=== PATIENT | female | born 1955 | race Caucasian/White ===

== ENCOUNTER → 2018-08-22 16:15 | Outpatient (CLI) | payer OTHER, SELFPAY ==
[2018-08-22 17:00] LABS: Add Manual Diff / Slide Review NO; Basophils Absolute Auto 0 /uL (0-100); Basophils Percent Auto 0.7 % (0-2); Eosinophils Absolute Auto 100 /uL (0-450); Eosinophils Percent Auto 2.4 % (2-4); Hematocrit 43.7 % (36-46); Hemoglobin 14.7 g/dL (12.0-16.0); Lymphocytes Absolute Auto 900 /uL (1100-4500); Lymphocytes Percent Auto 25.1 % (25-40); Mean Corpuscular HGB Conc 33.7 % (30-36); Mean Corpuscular Hemoglobin 32.5 PG (26-34); Mean Corpuscular Volume 96.5 fL (80-100); Monocytes Absolute Auto 300 /uL (0-900); Monocytes Percent Auto 7.8 % (3-14); Neutrophils Absolute Auto 2300 /uL (1500-7000); Platelet Count 133 X10^3/uL (150-400); Red Blood Cell Count 4.53 X10^6/uL (4.0-5.2); Red Cell Distribution Width 13.7 % (11.6-14.8); White Blood Cell Count 3.5 X10^3/uL (4.5-11.0)
[2018-08-22 17:24] LABS: RBC Urine None Seen (0-5/HPF)
[2018-08-22 17:34] LABS: Erythrocyte Sedimentation Rate 4 MM/HR (0-20)
[2018-08-22 17:55] LABS: Alanine Aminotransferase 39 IU/L (9-52); Albumin 4.1 g/dL (3.5-5.0); Albumin Globulin Ratio 1.6 (1.0-2.8); Alkaline Phosphatase 73 U/L (38-126); Aspartate Aminotransferase 27 IU/L (14-36); BUN Creatinine Ratio 21.7 (6-22); Bilirubin Total 0.3 mg/dL (0.2-1.3); Blood Urea Nitrogen 26 mg/dL (7-17); Calcium 9.5 mg/dL (8.4-10.2); Carbon Dioxide 32 mmol/L (22-32); Chloride 98 mmol/L (98-107); Estimated Glomerular Filt Rate 45.1 mL/min (>60); Globulin 2.5 g/dL (1.7-4.1); Glucose 78 mg/dL (80-110); HEMOLYSIS < 15 (0-50); Hemoglobin A1C% w Est Avg Glu 5.1 % (4.0-6.0); Potassium 4.1 mmol/L (3.4-5.1); Sodium 139 mmol/L (137-145); Total Protein 6.6 g/dL (6.3-8.2)
[2018-08-22 18:03] LABS: C-Reactive Protein Quant < 0.5 mg/dL (<1.0)
[2018-08-22 18:41] LABS: Bilirubin Urine UA NEGATIVE (NEGATIVE); Color Urine UA YELLOW; Glucose Urine UA NEGATIVE (Negative); Ketones Urine UA NEGATIVE (NEGATIVE); Leukocyte Esterase Urine UA NEGATIVE (NEGATIVE); Nitrite Urine UA POSITIVE (Negative); Occult Blood Urine UA 1+ (Negative); Protein Urine UA NEGATIVE (Negative); Urobilinogen Urine UA 0.2 E.U./dL (0.2); pH Urine UA 5.5 (4.5-8.0)
[2018-08-22 18:42] LABS: Appearance Urine UA Slightly Cloudy
[2018-08-22 18:58] LABS: Bacteria Urine Many (>30); Culture Indicated Urine Specimen Cultured; Squamous Epithelial Cell Urine 0-1 /HPF (0-5/HPF); WBC Urine 1-5/HPF (0-5/HPF)
== END ==
PROVIDERS: Visit Provider Orthopaedic Surgery
DX: Z01.818 Encounter for other preprocedural examination (principal); Z01.812 Encounter for preprocedural laboratory examination; N39.9 Disorder of urinary system, unspecified; Z13.1 Encounter for screening for diabetes mellitus; R73.9 Hyperglycemia, unspecified
CPT/HCPCS: 36415; 80053; 81001; 83036; 85025; 85651; 86140; 87077; 87086; 87186

== ENCOUNTER 2018-12-11 06:03 | Inpatient (IN) | payer OTHER, MEDICARE, SELFPAY ==
[2018-11-27 13:58] VITALS: BMI 20.1
[2018-12-11] VITALS (15 sets, daily range): BP systolic 93–147; BP diastolic 43–80; PULSE 87–106; RESP 10–20; TEMP 35.9–36.7; O2SAT 98–100; BMI 19.1
--- NOTE | 2018-12-11 06:00 | DI.RAD.S_ITS ---
PROCEDURE: XR HIP W PEL IF DONE RT 2V INDICATIONS: post right GARO TECHNIQUE: AP pelvis and lateral view of the right hip acquired. COMPARISON: [facility] [place], [place], XR PELVIS WITH BILATERAL LATERAL HIPS, 08/22/2018, 14:04. FINDINGS: Bones: Patient is status post right hip arthroplasty, with hardware components in expected positions. The hip joint appears congruent. The visualized bony structures appear intact. Soft tissues: Overlying postoperative changes are noted. No suspicious soft tissue densities. IMPRESSION: Post right total hip arthroplasty changes with anatomic right hip alignment. Dictated by: Shay Bowser M.D. on 12/11/2018 at 13:27 Approved by: Shay Bowser M.D. on 12/11/2018 at 13:27
[2018-12-11] MEDS: VANCOMYCIN 1,000 MG/200 ML PIGGYBACK 200 MG IV (07:08)
--- NOTE | 2018-12-11 07:11 | PC.NURSE ---
Day shift: Pt is not on AC unit at this time. [id number]
[2018-12-11] MEDS: ACETAMINOPHEN 325 MG TABLET 975 MG PO ×3 (07:20→20:57)
[2018-12-11] MEDS: CELECOXIB 200 MG CAPSULE PO (07:20)
[2018-12-11] MEDS: PREGABALIN 75 MG CAPSULE PO (07:21)
[2018-12-11] MEDS: LACTATED RINGERS 1,000 ML 42 ML IV ×2 (07:21→09:44)
--- NOTE | 2018-12-11 07:51 | PM.PREOP ---
Pre-operative Note Interval Note History & Physical reviewed/Exam performed by Physician: Yes Changes to H&P: No
--- NOTE | 2018-12-11 07:52 | PM.OP.1 ---
Operative Date/Time/Diagnoses Date of procedure: 12/11/18 Time of procedure: 07:52 Pre-op diagnosis: right hip OA. MS Post-op diagnosis: same Procedure & Clinicians Procedure: right total hip arthroplasty anterior Same procedure as scheduled: Yes Indications: The patient has had progressively worsening right hip pain with radiographic changes consistent with arthritis. Non-operative management has failed and the patient has requested total hip replacement. The risks, benefits and alternatives to surgery were discussed with the patient prior to proceeding. Risks discussed included, but were not limited to, failure to relieve pain, leg length discrepancy, dislocation, stiffness, infection, nerve damage, deep venous thrombosis, pulmonary embolism, stroke, coma, heart attack, permanent paralysis and , as well as the potential need for eventual revision of the prosthetic. Patient has a history of multiple sclerosis. Surgeon: Mandy Worthy Doughnut Machine Operator Helper: lAe Contreras Click Yes if Unassisted: Yes Anesthesia Type: General Operative Notes Findings: Severe right hip osteoarthritis, moderate preoperative hip flexion contracture Closure Type: primary Specimen(s): none sent Prosthetic devices, grafts, tissues, transplants, or devices: Worthy [employer] Nephew R3 54 cup, 54 x 36, 36+ 0 Oxinium, size 5 standard anthology Applied: implant(s) Estimated Blood Loss (mL): 250 Blood products transfused: none Procedure in detail: The patient was brought to the operating room. Patient was carefully positioned in the supine position. Time-out was performed and antibiotics were given. Anesthesia was induced. She was positioned in the on the table in order to allow hyperextension of the hip. The right lower extremities were prepped and draped in a standard sterile fashion. An anterior right hip incision was made 1 fingerbreadth lateral to the anterior superior iliac spine and extended distally towards the greater trochanter. Dissection was carried out through skin and subcutaneous tissues. The skin and subcutaneous tissues were carefully injected with Marcaine with epi. Superficial hemostasis was achieved. The fascia over the tensor fascia fartun was defined and incised with a knife. Two Allis clamps were used to grasp the fascia. Tensor fascia fartun was retracted laterally. A gelpi retractor was placed. Dissection was carried out down along the neck. There was significant scarring among the at between the abductors and the underlying capsule. She did have a preoperative hip flexion contracture. The circumflex vessels were carefully identified and cauterized with the Aqua Mantis. The rectus insertion along the capsule was meticulously mobilized. There was good visualization of the femoral neck. A Cobra was placed superior to the neck and the gluteus fibers were carefully stripped from that superior aspect of the capsule. A 2nd retractor was placed along the inferior aspect of the neck. The rectus insertion along the capsule was partially released. A 3rd retractor that was then gently placed over the rim of the acetabulum under the rectus. Capsule was carefully incised and released from the intertrochanteric line circumferentially superior to the mid sagittal line and inferiorly to the mid sagittal line until the lesser trochanter was palpable. A tag stitch was placed both in the superior and inferior limb of the capsular insertion. Along the acetabulum capsule was also released up to the mid sagittal 12:00 position. A portion of the labrum was resected. A saw was used to perform an osteotomy at the level of the intertrochanteric line and the junction of the superior femoral neck leaving approximately 1 finger breath of residual inferior neck above the lesser trochanter. A 2nd cut was made along the femoral neck at the base of the head and a napkin ring of neck was removed. Corkscrew was placed in the femoral head and the head was removed without difficulty. Retractors were then repositioned around the acetabulum. Residual labrum was resected and additional osteophytes were removed. A reamer that was 4 mm below the templated size was placed by hand in the acetabulum and it was reamed to centralize the acetabulum. It was then reamed up to 2 under the templated size and fluoroscopy was brought in to confirm the position of the reaming and depth of reaming. I reamed 1 under the anticipated size. A trial cup was placed and noted that it was appropriately sized and fluoroscopy confirmed position and depth. The component was open and inserted without difficulty fluoroscopic imaging was used to confirm that the cup had been adequately seated and was well positioned. A single screw was used for further stabilization. Neutral poly liner was placed. The cup was tested and noted to be stable. Attention was then directed to the femur. The femur was gently hyperextended additional capsular release was performed as needed in order to allow adequate visualization of the proximal femur with elevation of the femur. Patient was placed in a hyperextended slightly abducted position with maximum external rotation. Box osteotome was used to check for any residual neck as well as sclerotic bone along the trochanter. Emerado pepper was placed in the femur. Additional broaching was performed. Canal finder was used to determine the alignment of the canal and position. Size 1 broach was placed. The canal was then appropriately broached up to the templated size as long as there was adequate stability of the broach and serial advancement of the broach without excessive impingement. Specific attention was directed at avoiding varus attempting to direct the distal aspect of the broach more anteriorly and avoiding excessive anteversion. Trial reduction showed acceptable range of motion, good stability, no posterior impingement, hinduism of leg length and appropriate lateral shuck. I also hyperflexed the hip and checked that there was no impingement anteriorly and there was good stability with flexion, abduction and internal rotation. The hip was fairly tight preoperatively and it was reduced without significant difficulty but was actually a little bit difficult to dislocate. The boot was repositioned in order to allow some traction. Marcaine and Exparel were injected. A trial stem was noted to be in an acceptable position perhaps slight varus and I specifically reamed up to a size 5 working to lateralize the broach. A repeat closed reduction showed acceptable leg length offset and stability with a +0 head. The stem was placed without difficulty. Repeat trial reduction and x-ray showed acceptable overall position, length, and no evidence of the femoral fracture. Final head was placed. Wound was meticulously irrigated with normal saline. The hip was reduced and additional Exparel and Marcaine were injected. The capsule was closed with interrupted nonabsorbable sutures. The fascia of the tensor was closed with interrupted and running Vicryl. No drain was placed. Any tensor fascia fartun muscle that appeared to be contused or injured which was a minimal amount was carefully resected. Capsule around the tensor was injected with Exparel and Marcaine. The skin was closed with barbed stitches for the subcutaneous tissue and skin. We also used surgical glue. The wound was dressed sterilely. Brief Betadine soak was also used and was meticulously irrigated with normal saline. Patient was transferred to recovery room in satisfactory condition. Complications: none Condition: stable Disposition: Acute Care Plan for aftercare: The patient will be maintained on a standard total hip replacement protocol with weight bearing as tolerated and anterior hip precautions. The patient will receive Aspirin and sequential compression devices for DVT prophylaxis. The patient will be discharged home when safe for the home environment.
[2018-12-11] MEDS: CEFAZOLIN 2 GM/100 ML FROZ.PIGGY IV ×3 (08:00→20:57)
--- NOTE | 2018-12-11 08:42 | SUR.OPER ---
Supine, on HANA table, head on the foam pillow. Right arm taped over the blanket across pt's chest, padded with foam, left arm secured on arm board <90 degrees abduction. Both feet secured in special [place] table boots.
--- NOTE | 2018-12-11 08:51 | SUR.OPER ---
Late in a room because no interval note, MD tatum, also 1st day of going live for [facility] - was not able to get medication for the case; it was not available in [facility].
[2018-12-11] MEDS: BUPIVACAINE LIPOSOME 266 MG/20 ML VIAL INJ (09:00)
[2018-12-11] MEDS: BUPIVACAINE 0.25% W/ EPI 30 ML VIAL 60 ML INJ (09:00)
[2018-12-11] MEDS: TRANEXAMIC ACID 1,000 MG VIAL 2000 MG INJ ×2 (09:03→11:30)
[2018-12-11] MEDS: POVIDONE-IODINE 15 ML, SODIUM CHLORIDE 0.9% 250 ML TOP (11:00)
[2018-12-11] MEDS: ONDANSETRON 4 MG/2 ML INJ IV (13:10)
[2018-12-11] MEDS: LACTATED RINGERS 1,000 ML 125 ML IV (14:24)
[2018-12-11] MEDS: ONDANSETRON 4 MG ODT PO (15:58)
--- NOTE | 2018-12-11 16:30 | PT.IIE ---
Current Diagnoses Unilateral post-traumatic osteoarthritis, right hip (12/11/18) Pain in right hip (12/11/18) Surgery Performed Operation Date: 12/11/18 07:45 Actual Procedures p Total Hip Arthroplasty/Anterior Approach(Right) - Mandy Worthy MD Surgical History (Last Updated 11/27/18 @ 14:34 by Francy Heredia, RN) Hx of cholecystectomy (Acute ~2017) Medical History (Last Updated 11/27/18 @ 15:14 by Francy Heredia RN) Asymptomatic bacteriuria (Acute) CKD (chronic kidney disease), stage III (Acute) Depression (Acute) Edema (Acute) Fecal incontinence (Acute) Laceration of head (Acute 10/23/18) Lymphocytopenia (Acute) MRSA (methicillin resistant staph aureus) culture positive (Acute 10/25/18) Migraines (Acute) Multiple sclerosis (Acute) Neurogenic bladder (Acute) Optic neuritis due to multiple sclerosis (Acute) Osteoarthritis (Acute) Sepsis (Acute ~2017) [place] teeth extracted (Acute) Wrist fracture, right (Acute) Physical Therapy Inpatient Evaluation/Re-Eval M1 PT/OT-IP Prior Functional Status Start: 12/11/18 17:40 Freq: NEEDED Status: Active Protocol: Document 12/11/18 16:30 AB (Rec: 12/11/18 18:06 AB [id number]) Medical Review Prior Functional Status Medical History Reviewed Yes Diet/Fluid Consistency Regular Communication able to make needs known Mobility and Gait pt stated that she is modified independent with all mobilities using a FWW/4WW for short distance ambulation but uses a power w/c for long distance mobility Prior Functional Level (Other details) Pt has MS and stated that she has been using her RLE for support and supposedly her good leg. Currently has undergone R GARO. Social History Household Members spouse children Living Arrangements House Number of Floors (Floors) Two Floors Number of Stairs To Enter/Railing? 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 pt has been sleeping on the couch and just got a lift chair that she will use to sleep on when she goes home. M2 PT-IP Current Condition Start: 12/11/18 17:40 Freq: NEEDED Status: Active Protocol: Document 12/11/18 16:30 AB (Rec: 12/11/18 18:06 AB [id number]) Physical Therapy Current Condition Current Condition Evaluation Date 12/11/18 Treatment Diagnosis R GARO anterior approach; difficulty in walking Onset Date 12/11/18 Precautions Anterior Hip Precautions No Hip Extension No Hip External Rotation Weight Bearing Status Weight Bearing Status Weight Bear as Tolerated M3 PT-IP Subjective Start: 12/11/18 17:40 Freq: NEEDED Status: Active Protocol: Document 12/11/18 16:30 AB (Rec: 12/11/18 18:06 AB [id number]) Subjective Physical Therapy Visit Type Type Initial Evaluation Visit Start Time 16:30 Visit Stop Time 17:35 Total Visit Minutes 65 Number of INSTRUCTIONAL TECHNOLOGY COORDINATOR Visits 0 Physical Therapy Visit Comments Patient Comments pt agreeable to do PT but c/o a h/a and nausea Patient Goals to go home Therapy Pain Assessment Pain When Pain Assessed At Rest Location Head Intensity 2 Scale Used Numeric (1 - 10) M4 PT-IP Mobility and Gait Start: 12/11/18 17:40 Freq: NEEDED Status: Active Protocol: Document 12/11/18 16:30 AB (Rec: 12/11/18 18:06 AB [id number]) PT-Bed Mobility Assessment Supine to Sit Supine to Sit Maximum Assistance Head of Bed Elevated Sit to Supine Sit to Supine Maximum Assistance 2 Person Assistance Scooting Scooting to Edge of Bed Maximum Assistance PT-Transfer Assessment Sit to and From Stand Sit to and from Stand Maximum Assistance 2 Person Assistance Use of Upper Extremities Equipment Transfer Assistive Device Gait Belt Front Wheeled Walker Orthotic/Prosthetic Devices or Brace: No Comments Mobility Comments BP : 119/65 pt completed supine to sit with HOB elevated max A and max cues. pt with c/o nausea with (+) emesis. NAC presnt to assist. pt felt better afterwards and agreed to stand and completed sit to stand max A x 2 and max cues. pt with increase trunk flexion and bilateral knee flexion R>L . pt was able to take side steps towards HOB ~ 4 steps max A x 2 and max cues. completed sit to supine max A x 2 and max cues. positioned pt in bed. pillow placed in between B knee as pt has hypertonic LE adductors. set up pt for dinner. call light within reach. Left pt with pt 's daughter in room assisting pt with dinner. Gait Assessment Gait Gait Assistance Required: Maximum Assistance 2 Person Assist Distance (Feet) 2 Assistive Devices Assistive Device Gait Belt Front Wheeled Walker Orthotic/Prosthetic Devices or Brace: No Gait Deviations General Gait Pattern Antalgic Decreased Stride Length Decreased Feet Clearance Factors Limiting Gait Function Factors Limiting Gait Function Abnormal Tonal Influences Decreased Activity Tolerance Decreased Strength Difficulty Following Directions Incoordination Limited Range of Motion Pain Poor Balance Poor Safety Awareness Comments Gait Comments pt able to take side steps towards HOB using FWW max A x 2 and max cues. PT-Balance Assessment Sitting Balance and Reactions Static Sitting Balance Ability Fair Dynamic Sitting Balance Ability Fair Standing Balance and Reactions Static Standing Balance Ability Poor Dynamic Standing Balance Ability Poor Device Used FWW Comments Other Balance Tests/Deviations/Treatment pt requiring mod A for initial : sitting balance on EOB and required repostioning and afterwards requires CGA and cues for stability M5 PT-IP Objective Assessments Start: 12/11/18 17:40 Freq: NEEDED Status: Active Protocol: Document 12/11/18 16:30 AB (Rec: 12/11/18 18:06 AB [id number]) Orientation Orientation/Cognition Level of Alertness Alert Orientation Name Place Situation Language Function Ability No Deficits Noted Safety Awareness Understands Safety Issues Memory Description Short Term Impaired Gross Range of Motion Lower Extremity ROM Assessment Bilaterally Impaired Impairments R knee flexion contracture of ~ 30 degrees bilateral hamstrings tightness and hip flexors Strength Lower Extremity Strength Assessment Bilaterally Impaired Comments Strength Comments R hip flexors: 3-/5; R knee extensors: 3+/5; R ankle DF/PF 3/5 L hip flexors: 2-/5 ; L knee extensors: 3-/5; L ankle DF/PF : 3/5 Muscle Tone Muscle Tone WNL No Muscle Tone Location Bilateral Lower Extremity Type of Tone Hypertonicity Clonus Severity of Tone Moderate Comments Muscle Tone Comments (+) L ankle clonus increase bilateral LE hypertonicity: hip adductors M6 PT-IP Treatment Start: 12/11/18 17:40 Freq: NEEDED Status: Active Protocol: Document 12/11/18 16:30 AB (Rec: 12/11/18 18:06 AB [id number]) Physical Therapy Treatment Exercises Exercises Quad Sets Heel Slides Education Education Provided Precautions Weight Bearing Status Post-Op Packet Safety M7 PT-IP Assessment and Plan Start: 12/11/18 17:40 Freq: NEEDED Status: Active Protocol: Document 12/11/18 16:30 AB (Rec: 12/11/18 18:06 AB [id number]) PT Summary Assessment and Plan Potential Rehabilitation Potential Fair Status of Condition at Evaluation Evolving Summary Impairments Pain ROM Strength Balance Coordination Sensation Tone Bed Mobility Transfers Gait Activity Tolerance Assessment Summary pt requiring max A x 2 and max cues. pt with recent R GARO but also has MS contributing to weakness and requiring increase assistance. Recommending SNF rehab and informed pt and family. pt wants to go home and informed them that PT will continue to assess progress and also informed regarding home set up and equipement needs. pt and family agreed. will also ask for OT eval order. will conduct caregiver training if appropriate but at this time SNF will be the safer d/c plan . Goals Bed Mobility Goal Minimal Assistance Transfer Goal Minimal Assistance Front Wheeled Walker Gait Goal Minimal Assistance Front Wheel Walker Gait Distance 50 Days to Meet Goals 10 Frequency of Treatment Frequency Of Treatment Twice a Day Treatment Plan Physical Therapy Treatment Plan Bed Mobility Training Transfer Training Gait Training Therapeutic Exercise Balance Retraining Post Op Education Discharge Planning Hot or Cold Pack Neuromuscular Re-ed Coordination Retraining Manual Therapy Other Recommendations and Next Treatment transfers, ambulation, Focus caregiver training if appropriate Recommendations To Nursing Amount of Assist Needed PT/OT Assist Only Discharge Recommendations PT Discharge Recommendations Home with 24/7 Assist Home Health SNF Rehab Other Discharge Recommendations depending on progress SNF vs home with 24/7 and homehealth PT
[2018-12-11] MEDS: DOCUSATE 100 MG CAPSULE PO (20:57)
[2018-12-11] MEDS: ASPIRIN EC 81 MG TABLET PO (20:57)
[2018-12-11] MEDS: DOXYCYCLINE HYCLATE 100 MG TABLET PO (20:57)
[2018-12-12] VITALS (7 sets, daily range): BP systolic 92–111; BP diastolic 44–63; PULSE 82–98; RESP 15–18; TEMP 36.7–37.1; O2SAT 93–100
[2018-12-12] MEDS: OXYCODONE IR 5 MG TABLET PO (04:27)
[2018-12-12] MEDS: BACLOFEN 10 MG TABLET PO ×2 (04:30→20:44)
[2018-12-12 05:45] LABS: Hematocrit 29.9 % (36-46)
--- NOTE | 2018-12-12 07:54 | PM.PNPO.1 ---
Subjective Date Patient Seen: 12/12/18 Time Patient Seen: 07:54 Interval history: POD 1 s/p right total hip arthroplasty with Dr. Worthy. Patient has MS. She also has had chronic bladder infections and on Doxycycline. This was stopped a few weeks ago, and patient placed onto bactrim for 10 days. Patient had UA on at [facility]. She has not had results from this yet. She has a catheter in today until more mobile. Pain well controlled. She does have back pain and difficulty getting comfortable in bed. Exam Vital Signs (past 8 hours): - 12/12/18 01:21 12/12/18 06:30 Temperature 98.2 F 98.4 F Pulse Rate 82 82 Respiratory Rate 16 15 Blood Pressure 99/51 L 99/44 L Pulse Oximetry 100 99 Oxygen Delivery Method Room Air Narrative Exam Narrative: Patient lying in bed in no acute distress. She is alert and oriented x3. Dressing on right hip is CDI. Calves are soft, compressible, nontender bilaterally. Sensation intact to light touch about the lower extremities. She is able to actively dorsiflex and plantar flex. Cárdenas catheter in place. Objective Labs Result Diagrams: 12/12/18 05:25 Labs: Laboratory Results - last 24 hr 12/12/18 05:25 Hgb 10.0 L Hct 29.9 L Assessment & Plan Post-op Postoperative Procedures Operation Date: 12/11/18 07:45 Actual Procedures Side Surgeon p Total Hip Arthroplasty/Anterior Approach Right Mandy Worthy MD Patient will mobilize with physical therapy today. Anterior hip precautions. Patient will start iron and vitamin-C for acute postoperative anemia. Continue current pain control. She should take stool softeners while on these medications. DC catheter once she is mobilizing in her room to her chair. Patient does not need antibiotics at this time for chronic bladder infection. If we are unable to obtain UA results by the end of the day she will need a UA with culture as indicated tomorrow. If mobilizing safely with pain adequately controlled anticipate going home in next 1-2 days. Quality VTE Deep Vein Thrombosis/Pulmonary Embolism Present on Admission: No
--- NOTE | 2018-12-12 07:57 | P.PN_ITS ---
Subjective Date Patient Seen: 12/12/18 Time Patient Seen: 07:54 Interval history: POD 1 s/p right total hip arthroplasty with Dr. Worthy. Patient has MS. She also has had chronic bladder infections and on Doxycycline. This was stopped a few weeks ago, and patient placed onto bactrim for 10 days. Patient had UA on at [facility]. She has not had results from this yet. She has a catheter in today until more mobile. Pain well controlled. She does have back pain and difficulty getting comfortable in bed. Exam Vital Signs (past 8 hours): - 12/12/18 01:21 12/12/18 06:30 Temperature 98.2 F 98.4 F Pulse Rate 82 82 Respiratory Rate 16 15 Blood Pressure 99/51 L 99/44 L Pulse Oximetry 100 99 Oxygen Delivery Method Room Air Narrative Exam Narrative: Patient lying in bed in no acute distress. She is alert and oriented x3. Dressing on right hip is CDI. Calves are soft, compressible, nontender bilaterally. Sensation intact to light touch about the lower extrem ities. She is able to actively dorsiflex and plantar flex. Cárdenas catheter in place. Objective Labs Result Diagrams: 12/12/18 05:25 Labs: Laboratory Results - last 24 hr 12/12/18 05:25 Hgb 10.0 L Hct 29.9 L Assessment & Plan Post-op Postoperative Procedures Operation Date: 12/11/18 07:45 Actual Procedures Side Surgeon p Total Hip Arthroplasty/Anterior Approach Right Mandy Brandon Worthy MD Patient will mobilize with physical therapy today. Anterior hip precautions. Patient will start iron and vitamin-C for acute postoperative anemia. Continue current pain control. She should take stool softeners while on these medications. DC catheter once she is mobilizing in her room to her chair. Dasha ent does not need antibiotics at this time for chronic bladder infection. If we are unable to obtain UA results by the end of the day she will need a UA with culture as indicated tomorrow. If mobilizing safely with pain adequately controlled anticipate going home in next 1-2 days. Quality VTE Deep Vein Thrombosis/Pulmonary Embolism Present on Admission: No
[2018-12-12] MEDS: SODIUM CHLORIDE 0.9% FLUSH 10 ML IV ×3 (08:26→20:23)
[2018-12-12] MEDS: ACETAMINOPHEN 325 MG TABLET 975 MG PO ×3 (08:28→20:22)
[2018-12-12] MEDS: ASPIRIN EC 81 MG TABLET PO ×2 (08:30→20:23)
[2018-12-12] MEDS: FERROUS SULFATE 325 MG TABLET PO ×2 (08:30→16:18)
[2018-12-12] MEDS: ASCORBIC ACID 500 MG TABLET PO ×2 (08:30→20:23)
[2018-12-12] MEDS: CHOLECALCIFEROL (VITAMIN D3) 5,000 UNIT TABLET 5000 UNIT PO (08:31)
--- NOTE | 2018-12-12 10:30 | PT.IPTN ---
Current Diagnoses Unilateral post-traumatic osteoarthritis, right hip (12/11/18) Pain in right hip (12/11/18) Surgery Performed Operation Date: 12/11/18 07:45 Actual Procedures p Total Hip Arthroplasty/Anterior Approach(Right) - Mandy Worthy MD Physical Therapy Treatment Note M2 PT-IP Current Condition Start: 12/11/18 17:40 Freq: NEEDED Status: Active Protocol: Document 12/11/18 16:30 AB (Rec: 12/11/18 18:06 AB [id number]) Physical Therapy Current Condition Current Condition Evaluation Date 12/11/18 Treatment Diagnosis R GARO anterior approach; difficulty in walking Onset Date 12/11/18 Precautions Anterior Hip Precautions No Hip Extension No Hip External Rotation Weight Bearing Status Weight Bearing Status Weight Bear as Tolerated M3 PT-IP Subjective Start: 12/11/18 17:40 Freq: NEEDED Status: Active Protocol: Document 12/12/18 10:30 AB (Rec: 12/12/18 14:03 AB [id number]) Subjective Physical Therapy Visit Type Type Treatment Note Visit Start Time 10:30 Visit Stop Time 11:27 Total Visit Minutes 57 Number of JOB HONER Visits 0 Physical Therapy Visit Comments Patient Comments pt agreeable to do PT Therapy Pain Assessment Pain When Pain Assessed At Rest Pain Present Pain Present Pain Reported Location Right Hip Intensity 3 Scale Used Numeric (1 - 10) Pain Management Techniques Re-positioning Timing of Activity with Medications M4 PT-IP Mobility and Gait Start: 12/11/18 17:40 Freq: NEEDED Status: Active Protocol: Document 12/12/18 10:30 AB (Rec: 12/12/18 14:03 AB [id number]) PT-Bed Mobility Assessment Supine to Sit Supine to Sit Maximum Assistance 1 Person Assistance PT-Transfer Assessment Sit to and From Stand Sit to and from Stand Maximum Assistance 2 Person Assistance Use of Upper Extremities Equipment Transfer Assistive Device Gait Belt Front Wheeled Walker Orthotic/Prosthetic Devices or Brace: No Transfers Transfer Destination Chair Transfer Technique Stand Step Pivot Transfer Ability Level of Assist Maximum Assistance 2 Person Assistance Use of Upper Extremities Comments Mobility Comments completed sit to stand requiring 3 attempts. pt was not able to stand with first 2 attempts despite max A and max cues given. completed sit to stand with 3rd attempt with max A x 2 and max cues. pt with increase BLE adductor tone. pt with difficulty moving BLE during transfer and required max A x 2 to pivot and assist with weight shifting. pt agreed to ambulate after transfer and agreed to sit up on chair. positioned pt on chair. call light and table placed within reach. informed pt and daughter regarding SNF recommendation depending on progress and at this time needing 2 person assist. pt and daughter agreed. Gait Assessment Gait Gait Assistance Required: Maximum Assistance 2 Person Assist Distance (Feet) 4 Able to Maintain Weight Bearing Status Yes During Gait Assistive Devices Assistive Device Gait Belt Front Wheeled Walker Orthotic/Prosthetic Devices or Brace: No Gait Deviations General Gait Pattern Decreased Stride Length Decreased Feet Clearance Narrow Based Gait Step-to Gait Factors Limiting Gait Function Factors Limiting Gait Function Decreased Activity Tolerance Decreased Strength Difficulty Following Directions Limited Range of Motion Pain Poor Balance Poor Safety Awareness Comments Gait Comments pt completed sit to stand from chair max A x 2 and max cues. continues to have increase bilateral hip adductor tone. requires max A for weight shifting and cues to maintain hip precautions. increase B knee flexion during standing and increase trunk flexion. M5 PT-IP Objective Assessments Start: 12/11/18 17:40 Freq: NEEDED Status: Active Protocol: Document 12/11/18 16:30 AB (Rec: 12/11/18 18:06 AB [id number]) Orientation Orientation/Cognition Level of Alertness Alert Orientation Name Place Situation Language Function Ability No Deficits Noted Safety Awareness Understands Safety Issues Memory Description Short Term Impaired Gross Range of Motion Lower Extremity ROM Assessment Bilaterally Impaired Impairments R knee flexion contracture of ~ 30 degrees bilateral hamstrings tightness and hip flexors Strength Lower Extremity Strength Assessment Bilaterally Impaired Comments Strength Comments R hip flexors: 3-/5; R knee extensors: 3+/5; R ankle DF/PF 3/5 L hip flexors: 2-/5 ; L knee extensors: 3-/5; L ankle DF/PF : 3/5 Muscle Tone Muscle Tone WNL No Muscle Tone Location Bilateral Lower Extremity Type of Tone Hypertonicity Clonus Severity of Tone Moderate Comments Muscle Tone Comments (+) L ankle clonus increase bilateral LE hypertonicity: hip adductors M6 PT-IP Treatment Start: 12/11/18 17:40 Freq: NEEDED Status: Active Protocol: Document 12/12/18 10:30 AB (Rec: 12/12/18 14:03 AB [id number]) Physical Therapy Treatment Exercises Exercises Heel Slides Education Education Provided Precautions Weight Bearing Status Safety M7 PT-IP Assessment and Plan Start: 12/11/18 17:40 Freq: NEEDED Status: Active Protocol: Document 12/12/18 10:30 AB (Rec: 12/12/18 14:03 AB [id number]) PT Summary Assessment and Plan Potential Rehabilitation Potential Fair Summary Impairments Pain ROM Strength Balance Coordination Sensation Tone Cognition Bed Mobility Transfers Gait Activity Tolerance Progress Towards Goals Slow Progress due to Medical Issues Assessment Summary pt continues to require max A x 2 and max cues for mobility. pt was only able to ambulate ~ 4 ft forward requiring max A x 2 and max cues. unable to take steps backwards and has increase difficulty with side stepping. Pt will require SNF rehab to improve strength and mobility. Goals Bed Mobility Goal Minimal Assistance Transfer Goal Minimal Assistance Front Wheeled Walker Gait Goal Minimal Assistance Front Wheel Walker Gait Distance 50 Days to Meet Goals 10 Frequency of Treatment Frequency Of Treatment Twice a Day Treatment Plan Physical Therapy Treatment Plan Bed Mobility Training Transfer Training Gait Training Therapeutic Exercise Balance Retraining Post Op Education Discharge Planning Hot or Cold Pack Neuromuscular Re-ed Coordination Retraining Manual Therapy Other Recommendations and Next Treatment transfers, ambulation, Focus caregiver training if appropriate Recommendations To Nursing Amount of Assist Needed PT/OT Assist Only Discharge Recommendations PT Discharge Recommendations SNF Rehab
[2018-12-12] MEDS: DOCUSATE 100 MG CAPSULE PO ×2 (11:12→20:22)
--- NOTE | 2018-12-12 15:32 | PT.IPTN ---
Current Diagnoses Unilateral post-traumatic osteoarthritis, right hip (12/11/18) Pain in right hip (12/11/18) Surgery Performed Operation Date: 12/11/18 07:45 Actual Procedures p Total Hip Arthroplasty/Anterior Approach(Right) - Mandy Worthy MD Physical Therapy Treatment Note M2 PT-IP Current Condition Start: 12/11/18 17:40 Freq: NEEDED Status: Active Protocol: Document 12/11/18 16:30 AB (Rec: 12/11/18 18:06 AB [id number]) Physical Therapy Current Condition Current Condition Evaluation Date 12/11/18 Treatment Diagnosis R GARO anterior approach; difficulty in walking Onset Date 12/11/18 Precautions Anterior Hip Precautions No Hip Extension No Hip External Rotation Weight Bearing Status Weight Bearing Status Weight Bear as Tolerated M3 PT-IP Subjective Start: 12/11/18 17:40 Freq: NEEDED Status: Active Protocol: Document 12/12/18 15:32 AB (Rec: 12/12/18 18:32 AB [id number]) Subjective Physical Therapy Visit Type Type Treatment Note Visit Start Time 15:32 Visit Stop Time 15:53 Total Visit Minutes 21 Number of FIRST ASSIST Visits 0 Physical Therapy Visit Comments Patient Comments pt agreeable to do PT but wanted to stay on the chair afterwards. Therapy Pain Assessment Pain When Pain Assessed At Rest Pain Present Pain Present Pain Reported Location Right Hip Scale Used pain scale not stated M4 PT-IP Mobility and Gait Start: 12/11/18 17:40 Freq: NEEDED Status: Active Protocol: Document 12/12/18 15:32 AB (Rec: 12/12/18 18:32 AB [id number]) PT-Transfer Assessment Sit to and From Stand Sit to and from Stand Maximum Assistance 2 Person Assistance Use of Upper Extremities Equipment Transfer Assistive Device Gait Belt Front Wheeled Walker Orthotic/Prosthetic Devices or Brace: No Gait Assessment Gait Gait Assistance Required: Maximum Assistance 2 Person Assist Distance (Feet) 5 Able to Maintain Weight Bearing Status Yes During Gait Assistive Devices Assistive Device Gait Belt Front Wheeled Walker Orthotic/Prosthetic Devices or Brace: No Gait Deviations General Gait Pattern Decreased Stride Length Decreased Feet Clearance Flexed Trunk Narrow Based Gait Step-to Gait Factors Limiting Gait Function Factors Limiting Gait Function Decreased Activity Tolerance Decreased Sensation Decreased Strength Difficulty Following Directions Limited Range of Motion Pain Poor Balance Poor Safety Awareness Comments Gait Comments pt completed sit to stand from chair requiring max A x 2 and max cues. pt using UE heavily for support on FWW. pt continues to have increase bilateral knee flexion during standing and increase adductor hypertonicity affecting mobility. required max A x 2 for weightshifting and support . attempted another ambulation but pt only tolerated ~ 5 sec of standing and unable to ambulate further. positioned pt on chair. call light and table placed within reach. pt wants to sit up on chair but is worried about transferring back to bed. informed pt that the nurse can use the mechanical lift to transfer. pt is not very receptive to the use of a mechanical lift but at the same time not wanting to go back to bed with PT during tx. educated pt and daughter regarding current level of assistance and regarding safety decisions for appropriate transfer. M5 PT-IP Objective Assessments Start: 12/11/18 17:40 Freq: NEEDED Status: Active Protocol: Document 12/11/18 16:30 AB (Rec: 12/11/18 18:06 AB [id number]) Orientation Orientation/Cognition Level of Alertness Alert Orientation Name Place Situation Language Function Ability No Deficits Noted Safety Awareness Understands Safety Issues Memory Description Short Term Impaired Gross Range of Motion Lower Extremity ROM Assessment Bilaterally Impaired Impairments R knee flexion contracture of ~ 30 degrees bilateral hamstrings tightness and hip flexors Strength Lower Extremity Strength Assessment Bilaterally Impaired Comments Strength Comments R hip flexors: 3-/5; R knee extensors: 3+/5; R ankle DF/PF 3/5 L hip flexors: 2-/5 ; L knee extensors: 3-/5; L ankle DF/PF : 3/5 Muscle Tone Muscle Tone WNL No Muscle Tone Location Bilateral Lower Extremity Type of Tone Hypertonicity Clonus Severity of Tone Moderate Comments Muscle Tone Comments (+) L ankle clonus increase bilateral LE hypertonicity: hip adductors M6 PT-IP Treatment Start: 12/11/18 17:40 Freq: NEEDED Status: Active Protocol: Document 12/12/18 10:30 AB (Rec: 12/12/18 14:03 AB [id number]) Physical Therapy Treatment Exercises Exercises Heel Slides Education Education Provided Precautions Weight Bearing Status Safety M7 PT-IP Assessment and Plan Start: 12/11/18 17:40 Freq: NEEDED Status: Active Protocol: Document 12/12/18 15:32 AB (Rec: 12/12/18 18:32 AB [id number]) PT Summary Assessment and Plan Potential Rehabilitation Potential Fair Summary Impairments Pain ROM Strength Balance Coordination Sensation Tone Cognition Bed Mobility Transfers Gait Activity Tolerance Progress Towards Goals Slow Progress due to Medical Issues Slow Progress due to Activity Tolerance Assessment Summary pt continues to require 2 person max A with mobility. pt was only able to ambulate ~ 5 ft using FWW with max A x 2 and max cues. pt has knee contractures, BLE weakness and hip adductors hypertonicity making it difficult to move BLE forward and unable to do side stepping and back stepping. pt also using UE heavily on FWW for support and requires assistance to move FWW forward. pt at this time is not safe to go home and needs further PT intervention to improve strength and mobility. Pt has co- morbidities (MS, OA) contributing to current post- op weakness and decrease function. Goals Bed Mobility Goal Minimal Assistance Transfer Goal Minimal Assistance Front Wheeled Walker Gait Goal Minimal Assistance Front Wheel Walker Gait Distance 50 Days to Meet Goals 10 Frequency of Treatment Frequency Of Treatment Twice a Day Treatment Plan Physical Therapy Treatment Plan Bed Mobility Training Transfer Training Gait Training Therapeutic Exercise Balance Retraining Post Op Education Discharge Planning Hot or Cold Pack Neuromuscular Re-ed Coordination Retraining Manual Therapy Other Recommendations and Next Treatment transfers, ambulation, Focus caregiver training if appropriate Recommendations To Nursing Amount of Assist Needed Mechanical Lift Discharge Recommendations PT Discharge Recommendations SNF Rehab
--- NOTE | 2018-12-12 15:48 | CM.DANOTE ---
DCP/Assessment: Reviewed chart. Patient admitted to [facility] for right GARO performed on 12-11-[address] Worthy. Primary payor is 1)[facility] 2)Medicare part A only. Met with patient and daughter/Slime at bedside explained CM/SW role. Patient seen by therapy and current recommendation is SNF. Patient and daughter report that they have all needed DME in the home. Patient was planning on doing outpatient therapy at [facility] [place] Patient with h/o MS which she feels is attributing to her setback. Patient agreeable to short SNF stay if covered by payor. Notified patient and daughter that [place] doesn't usually authorize SNF for elective procedures. Patient requesting that CM team attempt. Therefore, asked SNEHA/Giulia to fax to [place] requesting SNF authorization. First SNF choice is [facility]. PATHOLOGY LABORATORY AIDES TEACHER called and spoke with Juanita, she confirms they accept [place] and will review. All clinical faxed. Patient and daughter aware that if [facility] declines they will go home. Patient agreeable to this as well. CM team hopeful that patient will improve over the next 24hrs enough to return home. Patient has very supportive family. P: Pending. Home vs. SNF. GINA Jennings Discharge Planning/Care Management CM Discharge Assessment Start: 12/12/18 15:45 Freq: Status: Active Protocol: Document 12/12/18 15:45 KJS (Rec: 12/12/18 15:48 KJS [id number]) Discharge Planning Assessment Assigned Event Decorator And Designer GINA Jennings Contact Information Toribio Hinson (spouse) Advance Directives? No Advance Directives on File No History Provided By Patient Family Member Medical Record Prior Living Arrangements House Household Members spouse children Type of transporation used prior to Relies on Others admit Independent with ADL's No: Uses walker and has all needed DME Is patient alert and oriented? Yes Caregiver for Another No DME Already Rented / Owned FWW / Walker Patient/Family Preference [facility] Facility Barriers to Discharge Yes Comment Referral faxed to [place] for authorization for elective right GARO performed on 12-11-18 . Discharge Plan [facility] Facility Transportation Arrangement Family or facility pending final plan Referrals Initiated [facility] If patient plan is SNF: Has PASSR been No completed? Medicare Choice List Provided Yes Has Agency SNF been contacted Yes Comment First SNF choice is [facility]. Second is [facility]. Whiteboard Updated in Patient Room with Yes name and ext. # of Event Decorator And Designer Review Status In Process Next Review Type Continued Stay Review Pre-Anesthesia Assessment Start: 11/27/18 13:58 Freq: Status: Complete Protocol: Document 11/27/18 13:58 CAB (Rec: 11/27/18 15:28 CAB [id number]) Pre-Anesthesia Assessment Patient Also Known As Corbett (AKA) Patient Information Reviewed Via Phone Assessment Assessment Completed With Patient Primary Care Provider Leanna Garcia Medical Clearance Received Yes Seen Specialist in Last 12 Months Yes Specialist Seen Orthopedist Other Comment Infectious Disease. PCP visit , clearance scanned to record Primary Language Upper Sorbian Business Center Manager Required No Height 167.64 cm Weight 56.699 kg Body Mass Index (BMI) 20.1 Hearing Ability Normal Visual Impairment No Limitations Visual Assist Glasses Dentition Type Teeth, Natural Present Barriers to Learning Physical Comment Hx of MS Hx Anesthesia Reactions No Hx Family Anesthesia Reaction No Hx Malignant Hyperthermia No Hx Blood Transfusions No Anesthesia Review Requested Yes: Surgeon requested: MS alcohol intake current alcohol intake frequency holidays/special occasions only Smoking Status Never smoker Substance Use Type does not use Pain Present Pain Reported Musculoskeletal Symptoms Abnormal Gait Back Pain Difficulty Walking Joint Pain Muscle Spasms History of Falling (Recent or History of Yes ) Patient is completely paralyzed or No completely immobile Prosthesis or Orthotic Device Front Wheel Walker Wheelchair Mental Status Oriented to own ability Comment Falls r/t MS Is patient on oxygen? No Does patient have MCNEILL/SOB No Hx Sleep Apnea No Currently Taking a Beta Dilan No Can You Climb a Flight of Stairs Without No SOB Hx Chest Pain No Hx SOB No Hx Syncope or Dizziness No Anti-Coagulant Therapy No Has a Industrial Electrician No Cardiac Testing No Hx Pacemaker/ICD No Pacemaker Rep Required? 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 Marital Status Lives With spouse children Prior Living Arrangements House Number of Floors (Floors) Two Floors Support System Child/Children Spouse Does the Patient Have Assistance After Yes Surgery Patient Discharge Plan Description Return Home Comment Pt advised 1-2 night length of stay per surgeon's office Feels Safe in Current Environment Yes Been Physically Hurt or Threatened By a No Person in Current Environment Do you have thoughts of harming yourself None or others? Are you currently considering suicide? No Do you have a plan to hurt yourself or No Plan others? Do You Have Any Spiritual Beliefs That No May Affect Your HC Choices? Do You Have Any Cultural Practices That No May Affect Your HC Choices? Comment Shorty Who Can We Speak to About Patient's Care Family, friends Identifying Code for Release of Patient Declines to issue Information Health Care Proxy/Next of Kin Toribio () Health Care Proxy Phone Number work: [phone] Emergency Contact Name Amy (daughter) Danielle ( daughter) Emergency Contact Phone Number Amy: [phone] Danielle: [phone] Advance Directives? No: Declines further information PAC Instructions Do not shave/clip surgical site Durable medical equipment Medications to take/avoid Nasal antibiotic No ETOH/petroleum product on skin DOS NPO Post-op transportation Pre-surgical wash Sensory aids Sturdy shoes/comfortable clothes Do not bring valuables and remove jewelry
--- NOTE | 2018-12-12 22:56 | PC.NURSE ---
Pt reports that her throat hurts a little to swallow water. pt's face is also a little flushed since this morning. urine sample sent to lab. 2pa-pancho lift. denied pain and taking tylenol scheduled. dressing cdi. silva patent.
[2018-12-13 00:12] LABS: Bacteria Urine None Seen; RBC Urine None Seen (0-5/HPF); WBC Urine None Seen (0-5/HPF)
[2018-12-13 00:21] LABS: Appearance Urine UA CLEAR; Bilirubin Urine UA NEGATIVE (NEGATIVE); Glucose Urine UA NEGATIVE (Negative); Ketones Urine UA NEGATIVE (NEGATIVE); Leukocyte Esterase Urine UA NEGATIVE (NEGATIVE); Nitrite Urine UA NEGATIVE (Negative); Occult Blood Urine UA NEGATIVE (Negative); Protein Urine UA NEGATIVE (Negative); Specific Gravity Urine UA <=1.005 (1.000-1.035); Urobilinogen Urine UA 0.2 E.U./dL (0.2)
[2018-12-13 00:26] LABS: Color Urine UA Straw; Squamous Epithelial Cell Urine 0-1 /HPF (0-5/HPF)
[2018-12-13 00:27] LABS: Culture Indicated Urine Cult Not Indicated
[2018-12-13 04:15] VITALS: BP 103/52; PULSE 81; RESP 15; TEMP 36.5; O2SAT 99
[2018-12-13 06:08] LABS: Hematocrit 29.6 % (36-46); Mean Corpuscular HGB Conc 33.7 % (30-36); Mean Corpuscular Hemoglobin 33.5 PG (26-34); Mean Corpuscular Volume 99.4 fL (80-100); Platelet Count 93 X10^3/uL (150-400); Red Blood Cell Count 2.98 X10^6/uL (4.0-5.2); Red Cell Distribution Width 13.7 % (11.6-14.8)
[2018-12-13 08:00] VITALS: BP 119/65; PULSE 101; RESP 16; TEMP 37.2; O2SAT 97
[2018-12-13] MEDS: DOCUSATE 100 MG CAPSULE PO ×2 (09:52→20:22)
[2018-12-13] MEDS: ASPIRIN EC 81 MG TABLET PO ×2 (09:52→20:22)
[2018-12-13] MEDS: ACETAMINOPHEN 325 MG TABLET 975 MG PO ×3 (09:53→20:21)
[2018-12-13] MEDS: CHOLECALCIFEROL (VITAMIN D3) 5,000 UNIT TABLET 5000 UNIT PO (09:53)
[2018-12-13] MEDS: ASCORBIC ACID 500 MG TABLET PO ×2 (09:54→20:22)
[2018-12-13] MEDS: FERROUS SULFATE 325 MG TABLET PO ×2 (09:54→17:27)
--- NOTE | 2018-12-13 10:44 | PM.PNPO.1 ---
Subjective Date Patient Seen: 12/13/18 Time Patient Seen: 10:44 Interval history: Hospital day 3, postop day 2 following right anterior total hip arthroplasty by Dr. Worthy. She does have multiple sclerosis. She continues to require maximum assist and Wilton lift for transfers. Limited ability to stand for short periods of time even for commode. Does have mild postoperative anemia and was started on vitamin-C and iron. She does have Cárdenas catheter in place. She had a urinalysis done yesterday which was negative. Exam Vital Signs (past 8 hours): - 12/13/18 04:15 12/13/18 08:00 Temperature 97.7 F 98.9 F Pulse Rate 81 101 H Respiratory Rate 15 16 Blood Pressure 103/52 L 119/65 Pulse Oximetry 99 97 Oxygen Delivery Method Room Air Oxygen Flow Rate 0 Narrative Exam Narrative: Alert, oriented in no acute distress resting in bed. Legs. Aquacel dressing to left anterior hip is dry without drainage or inflammation. No calf pain or swelling. Pulses symmetrical. Objective Labs Result Diagrams: 12/13/18 05:47 Labs: Laboratory Results - last 24 hr 12/12/18 12/13/18 20:56 05:47 WBC 5.0 RBC 2.98 L Hgb 10.0 L Hct 29.6 L MCV 99.4 MCH 33.5 MCHC 33.7 RDW 13.7 Plt Count 93 L Urine Color Straw Urine Appearance Clear Urine pH 6.0 Ur Specific [place] <=1.005 Urine Protein Negative Urine Glucose (UA) Negative Urine Ketones Negative Urine Occult Blood Negative Urine Nitrate Negative Urine Bilirubin Negative Urine Urobilinogen 0.2 Ur Leukocyte Esterase Negative Urine RBC None seen Urine WBC None seen Ur Squamous Epith Cells 0-1 /hpf Urine Bacteria None seen Ur Culture Indicated? Cult not indicated Assessment & Plan Post-op Postoperative Procedures Operation Date: 12/11/18 07:45 Actual Procedures Side Surgeon p Total Hip Arthroplasty/Anterior Approach Right Mandy Worthy MD Plan: Patient appears orthopedic least stable. Does not appear to have any UTI at this time. She is very limited on activity because of her multiple sclerosis. Requiring maximum assist for transfers and ambulation and needing Wilton lift. Does have mild postoperative anemia and is on vitamin-C and iron. Patient would benefit from SNF prior to going home. materials planner/production planner will work on getting authorization if possible. Quality VTE Deep Vein Thrombosis/Pulmonary Embolism Present on Admission: No
--- NOTE | 2018-12-13 11:42 | PT.IPTN ---
Current Diagnoses Unilateral post-traumatic osteoarthritis, right hip (12/11/18) Pain in right hip (12/11/18) Surgery Performed Operation Date: 12/11/18 07:45 Actual Procedures p Total Hip Arthroplasty/Anterior Approach(Right) - Mandy Worthy MD Physical Therapy Treatment Note M2 PT-IP Current Condition Start: 12/11/18 17:40 Freq: NEEDED Status: Active Protocol: Document 12/11/18 16:30 AB (Rec: 12/11/18 18:06 AB [id number]) Physical Therapy Current Condition Current Condition Evaluation Date 12/11/18 Treatment Diagnosis R GARO anterior approach; difficulty in walking Onset Date 12/11/18 Precautions Anterior Hip Precautions No Hip Extension No Hip External Rotation Weight Bearing Status Weight Bearing Status Weight Bear as Tolerated M3 PT-IP Subjective Start: 12/11/18 17:40 Freq: NEEDED Status: Active Protocol: Document 12/13/18 11:42 AB (Rec: 12/13/18 13:02 AB [id number]) Subjective Physical Therapy Visit Type Type Treatment Note Visit Start Time 11:42 Visit Stop Time 12:05 Total Visit Minutes 23 Number of COUNCIL MEMBER Visits 0 Physical Therapy Visit Comments Patient Comments pt agreed to do PT; daughter present during PT session Therapy Pain Assessment Pain When Pain Assessed At Rest Pain Present Pain Present Pain Reported Location Right Hip Intensity 2 Scale Used Numeric (1 - 10) M4 PT-IP Mobility and Gait Start: 12/11/18 17:40 Freq: NEEDED Status: Active Protocol: Document 12/13/18 11:42 AB (Rec: 12/13/18 13:02 AB [id number]) PT-Bed Mobility Assessment Supine to Sit Supine to Sit Maximum Assistance 1 Person Assistance Head of Bed Elevated Bedrails PT-Transfer Assessment Sit to and From Stand Sit to and from Stand Maximum Assistance 2 Person Assistance Use of Upper Extremities Equipment Transfer Assistive Device Gait Belt Front Wheeled Walker Orthotic/Prosthetic Devices or Brace: No Transfers Transfer Destination Chair Transfer Technique Stand Pivot Transfer Ability Level of Assist Maximum Assistance Total Assistance 2 Person Assistance Use of Upper Extremities Comments Mobility Comments pt completed supine to sit with max A and max cues with HOB elevated and pt used bed rail. pt was able to sit on EOB CGA to occasional min A with unsteady trunk and cues provided for correct for stability. pt attempted sit < >stand x 3 reps and unable to fully stand despite max A x 2 provided. attempted 2 more times with pt pulling from FWW and PT/OT stabilizing FWW. pt required max A x 2 and max cues. was only able to stand for ~ 3 secs on first attempt and on last attempt was able to take one side step towards the chair. pt stated that she feels that she is going to collapse. Pt with increase bilateral knee flexion and PT had to brace pt up for support . PT/OT assisted pt on chair requiring total A x 2. positioned pt on chair. educated pt and family regarding SNF rehab recommendation. pt and daughter are hesistant to go to SNF but pt understood that she needs to go for her recovery but is worried about insurance coverage. Left pt with OT and daughter. M5 PT-IP Objective Assessments Start: 12/11/18 17:40 Freq: NEEDED Status: Active Protocol: Document 12/11/18 16:30 AB (Rec: 12/11/18 18:06 AB [id number]) Orientation Orientation/Cognition Level of Alertness Alert Orientation Name Place Situation Language Function Ability No Deficits Noted Safety Awareness Understands Safety Issues Memory Description Short Term Impaired Gross Range of Motion Lower Extremity ROM Assessment Bilaterally Impaired Impairments R knee flexion contracture of ~ 30 degrees bilateral hamstrings tightness and hip flexors Strength Lower Extremity Strength Assessment Bilaterally Impaired Comments Strength Comments R hip flexors: 3-/5; R knee extensors: 3+/5; R ankle DF/PF 3/5 L hip flexors: 2-/5 ; L knee extensors: 3-/5; L ankle DF/PF : 3/5 Muscle Tone Muscle Tone WNL No Muscle Tone Location Bilateral Lower Extremity Type of Tone Hypertonicity Clonus Severity of Tone Moderate Comments Muscle Tone Comments (+) L ankle clonus increase bilateral LE hypertonicity: hip adductors M6 PT-IP Treatment Start: 12/11/18 17:40 Freq: NEEDED Status: Active Protocol: Document 12/12/18 10:30 AB (Rec: 12/12/18 14:03 AB [id number]) Physical Therapy Treatment Exercises Exercises Heel Slides Education Education Provided Precautions Weight Bearing Status Safety M7 PT-IP Assessment and Plan Start: 12/11/18 17:40 Freq: NEEDED Status: Active Protocol: Document 12/13/18 11:42 AB (Rec: 08/01/19 13:02 AB [id number]) PT Summary Assessment and Plan Potential Rehabilitation Potential Fair Summary Impairments Pain ROM Strength Balance Coordination Sensation Tone Cognition Bed Mobility Transfers Gait Activity Tolerance Progress Towards Goals Slow Progress due to Medical Issues Slow Progress due to Activity Tolerance Assessment Summary pt requiring max Ax 2 to total A x 2 for transfers today. Has an incidence of pt with increase knee flexion and stated that she feels she is going to collapse and has to be assisted on a chair total A x 2. informed pt and daughter regarding SNF rehab and both understood. pt is not safe to go home at this time and will require 24/7 assist max A x 2 to total A x 2. Goals Bed Mobility Goal Minimal Assistance Transfer Goal Minimal Assistance Front Wheeled Walker Gait Goal Minimal Assistance Front Wheel Walker Gait Distance 50 Days to Meet Goals 10 Frequency of Treatment Frequency Of Treatment Twice a Day Treatment Plan Physical Therapy Treatment Plan Bed Mobility Training Transfer Training Gait Training Therapeutic Exercise Balance Retraining Post Op Education Discharge Planning Hot or Cold Pack Neuromuscular Re-ed Coordination Retraining Manual Therapy Other Recommendations and Next Treatment transfers, ambulation, Focus caregiver training if appropriate Recommendations To Nursing Amount of Assist Needed Mechanical Lift Discharge Recommendations PT Discharge Recommendations SNF Rehab
--- NOTE | 2018-12-13 12:48 | OT.IP.EVAL ---
Current Diagnoses Unilateral post-traumatic osteoarthritis, right hip (12/11/18) Pain in right hip (12/11/18) Surgery Performed Operation Date: 12/11/18 07:45 Actual Procedures p Total Hip Arthroplasty/Anterior Approach(Right) - Mandy Worthy MD Past Medical History (Last Updated 11/27/18 @ 15:14 by Francy Heredia RN) Asymptomatic bacteriuria (Acute) CKD (chronic kidney disease), stage III (Acute) Depression (Acute) Edema (Acute) Fecal incontinence (Acute) Laceration of head (Acute 10/23/18) Lymphocytopenia (Acute) MRSA (methicillin resistant staph aureus) culture positive (Acute 10/25/18) Migraines (Acute) Multiple sclerosis (Acute) Neurogenic bladder (Acute) Optic neuritis due to multiple sclerosis (Acute) Osteoarthritis (Acute) Sepsis (Acute ~2017) [place] teeth extracted (Acute) Wrist fracture, right (Acute) Surgical History (Last Updated 11/27/18 @ 14:34 by Francy Heredia RN) Hx of cholecystectomy (Acute ~2017) Occupational Therapy Inpatient Evaluation/Re-Eval M1 PT/OT-IP Prior Functional Status Start: 12/11/18 17:40 Freq: NEEDED Status: Active Protocol: Document 12/13/18 12:48 PJM (Rec: 12/13/18 15:01 PJM [id number]) Medical Review Prior Functional Status Medical History Reviewed Yes Diet/Fluid Consistency Regular Communication WNL Mobility and Gait Pt stated that she is modified independent with all mobilities using a FWW/4WW for short distance ambulation but uses a power w/c for long distance mobility in the community. 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 She use power w/c at work only if she is doing tours. She walks into grocery store with walker, then uses electric cart. Activities of Daily Living and IADL's Pt was completely independent with all self care including eating, grooming seated on 4WW at sink, upper and lower body dressing including compression hose, toileting, and seated shower. Pt does most of cooking at home sitting on 4WW. She does laundry. Her family assists with cleaning and other heel molder. 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 She does not drive so her family provides transport to and from work. Her works radio time sales supervisor and leaves early (6 AM) before pt wakes up. Note pt reports multiple falls at home due to R hip pain and LLE weakness from M.S . Social History Household Members spouse children Living Arrangements House Number of Floors (Floors) Two Floors Number of Stairs To Enter/Railing? ramp to enter 2 story home; pt sleeps on main level on couch but recently bought a lift recliner to sleep in. Pt no longer goes upstairs. Pt has roll in shower without a threshold on main level. 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 Additional Social History Comment pt's daughter just graduated from college and stay as long as needed M2 OT-IP Current Condition Start: 12/13/18 14:27 Freq: Status: Active Protocol: Document 12/13/18 12:48 PJM (Rec: 12/13/18 15:01 PJ [id number]) Occupational Therapy Current Condition Current Condition Evaluation Date 12/13/18 Treatment Diagnosis decreased self care, mobility s/p R GARO with MS exacerbation Diagnosis Onset Date 12/11/18 Post Operative Precautions Anterior Hip Precautions No Hip Extension Other Precautions high fall risk, max assist 2 skilled therapists for transfers, strong adductor spasticity in BLE's with LLE weakness, mechanical lift transfer with nursing Weight Bearing Status Weight Bearing Status Weight Bear as Tolerated M3 OT- IP Subjective and Pain Start: 12/13/18 14:27 Freq: Status: Active Protocol: Document 12/13/18 12:48 PJM (Rec: 12/13/18 15:01 PJ [id number]) OT- Subjective Occupational Therapy Visit Type Type Initial Evaluation Visit Start Time 11:51 Visit Stop Time 12:48 Total Visit Minutes 57 Occupational Therapy Visit Comments Patient Comments I am weaker than usual. I can usually stand and walk by myself. Patient/Caregiver Goals to return to her baseline level of independence and return to work at [employer] OT Pain Assessment Pain When Pain Assessed After Treatment Pain Present Pain Present Pain Reported Location Right Hip Intensity 1 Scale Used Numeric (1 - 10) Description Aching Acute Management Techniques Distraction Re-positioning Timing of Activity with Medications M4 OT- IP ADL's Start: 12/13/18 14:27 Freq: Status: Active Protocol: Document 12/13/18 12:48 PJM (Rec: 12/13/18 15:01 [facility] [id number]) OT [id number] General Evaluation Self-Feeding Ability Independent OT ADL-Grooming General Evaluation Grooming Ability Standby Assistance Areas Needing Assistance Retrieving/Set-up of Grooming Items Comments OT Grooming Comments seated in chair OT ADL-Oral Care General Eval Oral Care Ability Standby Assistance Areas of Assistance Retrieving/Set-Up of Items Comments Oral Care Comments seated in chair OT ADL-Dressing General Eval Upper Body Dressing Ability Standby Assistance Lower Body Dressing Ability Total Assistance Areas Needing Assistance Retrieving/Set-up of Clothing Underpants/Brief Pants/Shorts Socks Shoes OT ADL-Toileting General Evaluation Toileting Ability Total Assistance Areas Needing Assistance Empty Catheter or Colostomy Comments OT Toileting Comments pt normally self caths while seated on toilet; currently ahs silva in place OT ADL-Bathing Bathing Type Bathing Type Sponge Bath General Evaluation Bathing Ability Maximal Assistance Areas Needing Assistance Wash/Dry Back Wash/Dry Perineal Area Wash/Dry Lower Extremities M5 OT- IP IADL's Start: 12/13/18 14:27 Freq: Status: Active Protocol: Document 12/13/18 12:48 PJM (Rec: 12/13/18 15:01 [facility] [id number]) OT-Instrumental Activities of Daily Living Deficits IADL Deficits Identified Deficits Home Safety Awareness Awareness of Need for Assistance at Home Good Awareness Ability to Problem Solve Emergency Able to Problem Solve Situations Medication Management Medication Management No Deficits Identified Money Management Money Management No Deficits Identified Meal Preparation Meal Preparation Comments pt currently unable to participate in this activity de to decreased functional mobility Enterprise Resource Planner Enterprise Resource Planner Caregiver Provides Assist Enterprise Resource Planner Comments pt normally does laundry seated on 4WW, family assists with other heel molder Driving Driving Caregiver Provides Assist Driving Comments pt no longer drives M6 OT- IP Functional Cognition Start: 12/13/18 14:27 Freq: Status: Active Protocol: Document 12/13/18 12:48 PJM (Rec: 12/13/18 15:01 [facility] [id number]) Cognitive Factors Limiting Selfcare Function Cognitive Ability Level of Alertness Alert Patient Orientation Name Age Birthday Month Date Year Day of Week Place Situation Attention Span Ability Capable of Focused Attention Capable of Sustained Attention Ability to Follow Commands Able to Follow Multi-Step Commands Memory Description No Deficits Noted Safety Awareness No Deficits Noted Problem Solving Ability Needs Assist to Identify Solutions Cognitive Comments Cognitive Assessment Comments Cognition appears WFL, 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 OT- Vision and Hearing OT- Hearing Assessment OT- Hearing Assessment WFL OT- Vision Assessment Visual Acuity WFL Vision Assessment Comments pt denies any vision deficits except needs glasses for long distance vision M7 OT- IP Mobility and Balance Start: 12/13/18 14:27 Freq: Status: Active Protocol: Document 12/13/18 12:48 PJM (Rec: 12/13/18 15:01 [facility] [id number]) OT- Bed Mobility Assessment Sit to Supine Sit to Supine Assist Maximum Assistance 1 Person Assistance Head of Bed Elevated Bedrails Scooting Scooting to Edge of Bed Contact Guard Assistance OT-Transfer Assessment Sit to and From Stand Sit to and from Stand Maximum Assistance 2 Person Assistance Transfers Transfer Ability Maximum Assistance Total Assistance 2 Person Assistance Technique Transfer Destination Chair Transfer Technique Stand Pivot Devices Transfer Assistive Devices Gait Belt Front Wheeled Walker Comments Mobility Comments See P.T. note for further details re: mobility OT- Gait Assessment Comments Gait Ability Comments Pt unable to ambulate at this time, but was household ambulator and ambulated at work with 4WW prior to admit. B knee flexion contractures noted. OT- Balance Assessment Sitting Balance and Reactions Static Sitting Balance Ability Good Dynamic Sitting Balance Ability Fair Standing Balance and Reactions Static Standing Balance Ability Poor Dynamic Standing Balance Ability Poor M8 OT- IP Objective Assessments Start: 12/13/18 14:27 Freq: Status: Active Protocol: Document 12/13/18 12:48 PJM (Rec: 12/13/18 15:01 [facility] [id number]) OT Gross Range of Motion Upper Extremity Range of Motion Assessment Within Functional Limits OT Strength Upper Extremity Strength Assessment Within Functional Limits Hand Transplant Immunologist Strength Hand Dominance Right OT- Coordination Assessment Comments Coordination Comments BUE WFL OT-Muscle Tone Assessment Muscle Tone WNL Yes Comments Muscle Tone Comments BUE muscle tone WFL, pt has strong BLE adductor tone ( worse than baseline per pt) OT Sensation Assessment Comments Summary Comments BUE WNL per pt Edema Edema Comments pt wears BLE knee high compression hose with ankle edema noted M9 OT- IP Assessment and Plan Start: 12/13/18 14:27 Freq: Status: Active Protocol: Document 12/13/18 12:48 THANH (Rec: 12/13/18 15:01 PJPatricia [id number]) OT Summary Assessment and Plan Potential Rehabilitation Potential Good Analytic Complexity at Evaluation Moderate Summary OT Impairments Range of Motion Strength Balance Tone Functional Mobility Grooming Dressing Toileting Bathing Toilet Transfers Shower Transfers Assessment Summary Moderate complexity OT assessment completed on this 63 yr old woman admitted after R GARO (anterior approach) with significant co-morbidity of MS since 2004. Pt currently appears to be having and MS exacerbation with increased BLE weakness, strong adductor tone and decreased trunk control compared to her baseline. Note pt's high baseline level of self care function and IADLS (modified independent in all areas with adaptive equipment as described above). 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 She only used power w/c for long distances. Pt is currently far below her baseline level of function and requires 2 person max to total assist or mechanical lift to transfer to chair. She is unable to ambulate. She also has significant performance deficits in lower body dressing, bathing and toileting with silva in place. Pt is not safe to return home with family assist due to high care needs and transfer/ mobility deficits. Strongly recommend further rehab services at [facility] as pt needs daily therapy for best chance or return to baseline level of function as MS exacerbation resolves. Pt not safe for car transfers at present so cannot go to out pt therapy. [place] Pt will benefit from OT services here to address the goals below. Goals Grooming Goal Independent Dressing Goal Moderate Assistance Toileting Goal Moderate Assistance Bathing Goal Minimal Assistance Toilet Transfer Goal Moderate Assistance Bedside Commode Patient/Caregiver Education Goal Demonstrate Post-Op Precautions OT-Other Goals Bathing goal is for seated upper body sponge bath. Days to Meet Goals 7 Frequency of Treatment Frequency Of Treatment Once a Day Treatment Plan OT Treatment Plan ADL Training Functional Mobility Patient/Family Education Discharge Planning Discharge Recommendations OT Discharge Recommendations SNF Rehab Home Equipment Needs to be determined pending progress
--- NOTE | 2018-12-13 15:41 | PT.IPTN ---
Current Diagnoses Unilateral post-traumatic osteoarthritis, right hip (12/11/18) Pain in right hip (12/11/18) Surgery Performed Operation Date: 12/11/18 07:45 Actual Procedures p Total Hip Arthroplasty/Anterior Approach(Right) - Mandy Worthy MD Physical Therapy Treatment Note M2 PT-IP Current Condition Start: 12/11/18 17:40 Freq: NEEDED Status: Active Protocol: Document 12/11/18 16:30 AB (Rec: 12/11/18 18:06 AB [id number]) Physical Therapy Current Condition Current Condition Evaluation Date 12/11/18 Treatment Diagnosis R GARO anterior approach; difficulty in walking Onset Date 12/11/18 Precautions Anterior Hip Precautions No Hip Extension No Hip External Rotation Weight Bearing Status Weight Bearing Status Weight Bear as Tolerated M3 PT-IP Subjective Start: 12/11/18 17:40 Freq: NEEDED Status: Active Protocol: Document 12/13/18 15:41 AB (Rec: 12/13/18 18:24 AB [id number]) Subjective Physical Therapy Visit Type Type Treatment Note Visit Start Time 15:41 Visit Stop Time 16:04 Total Visit Minutes 23 Number of MODEL MAKER FIREARMS Visits 0 Physical Therapy Visit Comments Patient Comments pt agreed to do PT Therapy Pain Assessment Pain When Pain Assessed At Rest Pain Present Pain Present Pain Reported Location Right Hip Intensity 2 Scale Used increased with weight bearing Pain Management Techniques Apply Cold Modification of Treatment Timing of Activity with Medications M4 PT-IP Mobility and Gait Start: 12/11/18 17:40 Freq: NEEDED Status: Active Protocol: Document 12/13/18 15:41 AB (Rec: 12/13/18 18:24 AB [id number]) PT-Transfer Assessment Sit to and From Stand Sit to and from Stand Maximum Assistance 2 Person Assistance Use of Upper Extremities Equipment Transfer Assistive Device Gait Belt Front Wheeled Walker Orthotic/Prosthetic Devices or Brace: No Comments Mobility Comments pt completed sit <>stand x 4 reps requiring max A x 2 and max cues. PT has to stabilize L knee and assist with knee extension for sit to stand. pt was able to tolerate ~ 5-8 sec of standing using FWW for support max A x 2 and max cues . M5 PT-IP Objective Assessments Start: 12/11/18 17:40 Freq: NEEDED Status: Active Protocol: Document 12/11/18 16:30 AB (Rec: 12/11/18 18:06 AB [id number]) Orientation Orientation/Cognition Level of Alertness Alert Orientation Name Place Situation Language Function Ability No Deficits Noted Safety Awareness Understands Safety Issues Memory Description Short Term Impaired Gross Range of Motion Lower Extremity ROM Assessment Bilaterally Impaired Impairments R knee flexion contracture of ~ 30 degrees bilateral hamstrings tightness and hip flexors Strength Lower Extremity Strength Assessment Bilaterally Impaired Comments Strength Comments R hip flexors: 3-/5; R knee extensors: 3+/5; R ankle DF/PF 3/5 L hip flexors: 2-/5 ; L knee extensors: 3-/5; L ankle DF/PF : 3/5 Muscle Tone Muscle Tone WNL No Muscle Tone Location Bilateral Lower Extremity Type of Tone Hypertonicity Clonus Severity of Tone Moderate Comments Muscle Tone Comments (+) L ankle clonus increase bilateral LE hypertonicity: hip adductors M6 PT-IP Treatment Start: 12/11/18 17:40 Freq: NEEDED Status: Active Protocol: Document 12/13/18 15:41 AB (Rec: 12/13/18 18:24 AB [id number]) Physical Therapy Treatment Education Education Provided Safety Other Treatments Other Treatment Performed completed sitting balance/ tolerance on chair without back support. cued pt to activate trunk muscles. pt completed static sitting SBA to CGA. completed sitting balance/tolerance activity CGA to min A: pt reaching for PT' s hand in different directions . M7 PT-IP Assessment and Plan Start: 12/11/18 17:40 Freq: NEEDED Status: Active Protocol: Document 12/13/18 15:41 AB (Rec: 12/13/18 18:24 AB [id number]) PT Summary Assessment and Plan Potential Rehabilitation Potential Fair Summary Impairments Pain ROM Strength Balance Coordination Sensation Tone Cognition Bed Mobility Transfers Gait Activity Tolerance Progress Towards Goals Slow Progress due to Pain Slow Progress due to Medical Issues Slow Progress due to Activity Tolerance Assessment Summary pt continues to require max A x 2 and max cues with all mobilities. requires max A x 2 for sit to stand and to maintain standing balance using FWW. pt with heavy use of bother UE on FWW for support. pt has underlying MS on top of her recent R GARO and is contributing to weakness affecting mobility. pt is not safe to go home despite having her daughter to assist her as pt is requiring 2 person max A with max cues. pt requires more skilled intervention and is a fall risk. Pt understood and agreed about level of care needed at this time and is agreeable to go to SNF but is concerned about insurance coverage. pt requires 24/7 max A x 2 with all mobilities and is non ambulatory at this time. pt will need SNF rehab to improve strength and functional mobility. Goals Bed Mobility Goal Minimal Assistance Transfer Goal Minimal Assistance Front Wheeled Walker Gait Goal Minimal Assistance Front Wheel Walker Gait Distance 50 Days to Meet Goals 10 Frequency of Treatment Frequency Of Treatment Twice a Day Treatment Plan Physical Therapy Treatment Plan Bed Mobility Training Transfer Training Gait Training Therapeutic Exercise Balance Retraining Post Op Education Discharge Planning Hot or Cold Pack Neuromuscular Re-ed Coordination Retraining Manual Therapy Other Recommendations and Next Treatment transfers, ambulation, Focus caregiver training if appropriate Recommendations To Nursing Amount of Assist Needed Mechanical Lift Discharge Recommendations PT Discharge Recommendations SNF Rehab
--- NOTE | 2018-12-13 15:47 | CM.DPNOTE ---
DCP Cont: YVROSE Platt faxed updated PT/OT notes to [facility] today. Juan[facility] at [facility] has accepted pt for admission pending [facility] auth in place. Following very closely. Pt requires SNF at this time for safe DCP. Therapy notes are very thorough and eloquent in stating pt's current need for rehab, pt far from her baseline. Following very closely and will call [facility] in the morning to request update on their determination. ROSALIO
[2018-12-13 15:51] VITALS: BP 112/51; PULSE 86; RESP 18; TEMP 38.2; O2SAT 96
[2018-12-13 16:40] VITALS: TEMP 37.1; TEMP 38.1
[2018-12-13] MEDS: BACLOFEN 10 MG TABLET PO (20:21)
[2018-12-13] MEDS: SODIUM CHLORIDE 0.9% FLUSH 10 ML IV (20:23)
[2018-12-13 21:29] VITALS: BP 94/52; PULSE 72; RESP 16; TEMP 37.1; O2SAT 97
[2018-12-13 23:45] VITALS: BP 97/61; PULSE 92; RESP 16; TEMP 36.5; O2SAT 98
[2018-12-14 05:00] VITALS: BP 126/60; PULSE 84; RESP 16; TEMP 36.9; O2SAT 97
[2018-12-14 08:00] VITALS: BP 110/66; PULSE 109; RESP 16; TEMP 37; O2SAT 96
--- NOTE | 2018-12-14 09:41 | PT.IPTN ---
Current Diagnoses Unilateral post-traumatic osteoarthritis, right hip (12/11/18) Pain in right hip (12/11/18) Surgery Performed Operation Date: 12/11/18 07:45 Actual Procedures p Total Hip Arthroplasty/Anterior Approach(Right) - Mandy Worthy MD Physical Therapy Treatment Note M2 PT-IP Current Condition Start: 12/11/18 17:40 Freq: NEEDED Status: Active Protocol: Document 12/11/18 16:30 AB (Rec: 12/11/18 18:06 AB [id number]) Physical Therapy Current Condition Current Condition Evaluation Date 12/11/18 Treatment Diagnosis R GARO anterior approach; difficulty in walking Onset Date 12/11/18 Precautions Anterior Hip Precautions No Hip Extension No Hip External Rotation Weight Bearing Status Weight Bearing Status Weight Bear as Tolerated M3 PT-IP Subjective Start: 12/11/18 17:40 Freq: NEEDED Status: Active Protocol: Document 12/14/18 09:41 AB (Rec: 12/14/18 13:02 AB [id number]) Subjective Physical Therapy Visit Type Type Treatment Note Visit Start Time 09:41 Visit Stop Time 10:14 Total Visit Minutes 33 Number of SENIOR STRATEGY MANAGER Visits 0 Physical Therapy Visit Comments Patient Comments pt agreeable to do PT Therapy Pain Assessment Pain When Pain Assessed At Rest Pain Present Pain Present Pain Reported Location Right Hip Intensity 2 Scale Used Numeric (1 - 10) Pain Management Techniques Apply Cold Re-positioning Timing of Activity with Medications M4 PT-IP Mobility and Gait Start: 12/11/18 17:40 Freq: NEEDED Status: Active Protocol: Document 12/14/18 09:41 AB (Rec: 12/14/18 13:02 AB [id number]) PT-Bed Mobility Assessment Supine to Sit Supine to Sit Maximum Assistance 2 Person Assistance Head of Bed Elevated Bedrails Scooting Scooting to Edge of Bed Maximum Assistance PT-Transfer Assessment Sit to and From Stand Sit to and from Stand Maximum Assistance 2 Person Assistance Use of Upper Extremities Equipment Transfer Assistive Device Gait Belt Front Wheeled Walker Orthotic/Prosthetic Devices or Brace: No Transfers Transfer Destination Chair Transfer Technique Stand Pivot Transfer Ability Level of Assist Maximum Assistance 2 Person Assistance Use of Upper Extremities Comments Mobility Comments pt completed supine to sit HOB elevated and pt used bed rail requiring max A x 2 and max cues. required max A for scooting towards EOB. pt completed sit to stand max A x 2 and max cues. requires max A to stabilize FWW and L knee to prevent from buckling. pt completed a stand pivot transfer max A x 2 and max cues to the chair. pt agreed to do ambulation. set up pt on chair after tx session. call light and table placed within reach. Gait Assessment Gait Gait Assistance Required: Maximum Assistance 2 Person Assist Distance (Feet) 2 Able to Maintain Weight Bearing Status Yes During Gait Assistive Devices Assistive Device Gait Belt Front Wheeled Walker Orthotic/Prosthetic Devices or Brace: No Gait Deviations General Gait Pattern Decreased Stride Length Decreased Feet Clearance Narrow Based Gait Step-to Gait Factors Limiting Gait Function Factors Limiting Gait Function Abnormal Tonal Influences Decreased Activity Tolerance Decreased Strength Incoordination Limited Range of Motion Pain Poor Balance Poor Safety Awareness Comments Gait Comments pt completed ambulation using FWW max A x 2 and max cues ~ 2 ft. pt with heavy use of UE on FWW for support. requires max A to stabilize L knee . pt also presents with increase hip adductor tone. M5 PT-IP Objective Assessments Start: 12/11/18 17:40 Freq: NEEDED Status: Active Protocol: Document 12/11/18 16:30 AB (Rec: 12/11/18 18:06 AB [id number]) Orientation Orientation/Cognition Level of Alertness Alert Orientation Name Place Situation Language Function Ability No Deficits Noted Safety Awareness Understands Safety Issues Memory Description Short Term Impaired Gross Range of Motion Lower Extremity ROM Assessment Bilaterally Impaired Impairments R knee flexion contracture of ~ 30 degrees bilateral hamstrings tightness and hip flexors Strength Lower Extremity Strength Assessment Bilaterally Impaired Comments Strength Comments R hip flexors: 3-/5; R knee extensors: 3+/5; R ankle DF/PF 3/5 L hip flexors: 2-/5 ; L knee extensors: 3-/5; L ankle DF/PF : 3/5 Muscle Tone Muscle Tone WNL No Muscle Tone Location Bilateral Lower Extremity Type of Tone Hypertonicity Clonus Severity of Tone Moderate Comments Muscle Tone Comments (+) L ankle clonus increase bilateral LE hypertonicity: hip adductors M6 PT-IP Treatment Start: 12/11/18 17:40 Freq: NEEDED Status: Active Protocol: Document 12/14/18 09:41 AB (Rec: 12/14/18 13:02 AB [id number]) Physical Therapy Treatment Education Education Provided Safety M7 PT-IP Assessment and Plan Start: 12/11/18 17:40 Freq: NEEDED Status: Active Protocol: Document 12/14/18 09:41 AB (Rec: 12/14/18 13:02 AB [id number]) PT Summary Assessment and Plan Potential Rehabilitation Potential Good Summary Impairments Pain ROM Strength Balance Coordination Sensation Tone Cognition Bed Mobility Transfers Gait Activity Tolerance Progress Towards Goals Slow Progress due to Medical Issues Slow Progress due to Activity Tolerance Assessment Summary pt doing a little better today with mobility compared to yesterdays but continues to need max A x 2 and max cues for all tasks. pt also easily fatigues and will influence level of assistance needed. pt will need SNF rehab to improve strength and mobility. Goals Bed Mobility Goal Minimal Assistance Transfer Goal Minimal Assistance Front Wheeled Walker Gait Goal Minimal Assistance Front Wheel Walker Gait Distance 50 Days to Meet Goals 10 Frequency of Treatment Frequency Of Treatment Twice a Day Treatment Plan Physical Therapy Treatment Plan Bed Mobility Training Transfer Training Gait Training Therapeutic Exercise Balance Retraining Post Op Education Discharge Planning Hot or Cold Pack Neuromuscular Re-ed Coordination Retraining Manual Therapy Other Recommendations and Next Treatment transfers, ambulation, Focus caregiver training if appropriate Recommendations To Nursing Amount of Assist Needed Mechanical Lift Discharge Recommendations PT Discharge Recommendations SNF Rehab
[2018-12-14] MEDS: ASPIRIN EC 81 MG TABLET PO (09:49)
[2018-12-14] MEDS: DOCUSATE 100 MG CAPSULE PO (09:49)
[2018-12-14] MEDS: CHOLECALCIFEROL (VITAMIN D3) 5,000 UNIT TABLET 5000 UNIT PO (09:49)
[2018-12-14] MEDS: ASCORBIC ACID 500 MG TABLET PO (09:49)
[2018-12-14] MEDS: FERROUS SULFATE 325 MG TABLET PO (09:50)
[2018-12-14] MEDS: SODIUM CHLORIDE 0.9% FLUSH 10 ML IV (09:50)
[2018-12-14] MEDS: ACETAMINOPHEN 325 MG TABLET 975 MG PO ×2 (09:50→14:33)
--- NOTE | 2018-12-14 11:34 | PC.NURSE ---
Assess- Pt worked with physical therapy today and was a 2 pa to the chair. She has been sitting up in chair and visiting with her daughters. Pt will be going to SNF today [facility] in [facility]. Dressing to anterior portion of upper leg cdi. CMS wnl and ppx2.
--- NOTE | 2018-12-14 13:30 | OT.IP.TRT ---
Current Diagnoses Unilateral post-traumatic osteoarthritis, right hip (12/11/18) Pain in right hip (12/11/18) Surgery Performed Operation Date: 12/11/18 07:45 Actual Procedures p Total Hip Arthroplasty/Anterior Approach(Right) - Mandy Worthy MD Occupational Therapy Treatment Note M2 OT-IP Current Condition Start: 12/13/18 14:27 Freq: Status: Active Protocol: Document 12/13/18 12:48 PJM (Rec: 12/13/18 15:01 PJM [id number]) Occupational Therapy Current Condition Current Condition Evaluation Date 12/13/18 Treatment Diagnosis decreased self care, mobility s/p R GARO with MS exacerbation Diagnosis Onset Date 12/11/18 Post Operative Precautions Anterior Hip Precautions No Hip Extension Other Precautions high fall risk, max assist 2 skilled therapists for transfers, strong adductor spasticity in BLE's with LLE weakness, mechanical lift transfer with nursing Weight Bearing Status Weight Bearing Status Weight Bear as Tolerated M3 OT- IP Subjective and Pain Start: 12/13/18 14:27 Freq: Status: Active Protocol: Document 12/14/18 13:13 CGR (Rec: 12/14/18 13:30 CGR [id number]) OT- Subjective Occupational Therapy Visit Type Type Progress Note Visit Start Time 09:41 Visit Stop Time 10:11 Total Visit Minutes 30 Notes Co-treat with P.T. Occupational Therapy Visit Comments Patient Comments I am not sure how far I will get but I will try. OT Pain Assessment Pain When Pain Assessed At Rest Pain Present Pain Present Pain Reported Location Right Hip Intensity 2 Scale Used Numeric (1 - 10) M4 OT- IP ADL's Start: 12/13/18 14:27 Freq: Status: Active Protocol: Document 12/14/18 13:13 CGR (Rec: 12/14/18 13:30 CGR [id number]) OT [id number] Comments OT Self-Feeding Comments Not meal time OT ADL-Grooming Comments OT Grooming Comments Pt declined, already performed OT ADL-Oral Care Comments Oral Care Comments Pt declined, already performed OT ADL-Dressing General Eval Lower Body Dressing Ability Total Assistance Areas Needing Assistance Socks OT ADL-Toileting Comments OT Toileting Comments Pt with silva at this time OT ADL-Bathing Comments OT Bathing Comments Not appropriate at this time M5 OT- IP IADL's Start: 12/13/18 14:27 Freq: Status: Active Protocol: Document 12/13/18 12:48 PJM (Rec: 12/13/18 15:01 PJ [id number]) OT-Instrumental Activities of Daily Living Deficits IADL Deficits Identified Deficits Home Safety Awareness Awareness of Need for Assistance at Home Good Awareness Ability to Problem Solve Emergency Able to Problem Solve Situations Medication Management Medication Management No Deficits Identified Money Management Money Management No Deficits Identified Meal Preparation Meal Preparation Comments pt currently unable to participate in this activity de to decreased functional mobility Tick Inspector Tick Inspector Caregiver Provides Assist Tick Inspector Comments pt normally does laundry seated on 4WW, family assists with otehr promotion manager Driving Driving Caregiver Provides Assist Driving Comments pt no longer drives M6 OT- IP Functional Cognition Start: 12/13/18 14:27 Freq: Status: Active Protocol: Document 12/13/18 12:48 PJM (Rec: 12/13/18 15:01 [facility] [id number]) Cognitive Factors Limiting Selfcare Function Cognitive Ability Level of Alertness Alert Patient Orientation Name Age Birthday Month Date Year Day of Week Place Situation Attention Span Ability Capable of Focused Attention Capable of Sustained Attention Ability to Follow Commands Able to Follow Multi-Step Commands Memory Description No Deficits Noted Safety Awareness No Deficits Noted Problem Solving Ability Needs Assist to Identify Solutions Cognitive Comments Cognitive Assessment Comments Cognition appears WFL, 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 OT- Vision and Hearing OT- Hearing Assessment OT- Hearing Assessment WFL OT- Vision Assessment Visual Acuity WFL Vision Assessment Comments pt denies any vision deficits except needs glasses for long distance vision M7 OT- IP Mobility and Balance Start: 12/13/18 14:27 Freq: Status: Active Protocol: Document 12/14/18 13:13 CGR (Rec: 12/14/18 13:30 CGR [email or web address]) OT- Bed Mobility Assessment Supine to Sit Supine to Sit Assist Maximum Assistance 2 Person Assistance Head of Bed Elevated Bedrails Scooting Scooting to Edge of Bed Maximum Assistance 2 Person Assistance Head of Bed Elevated Bedrails OT-Transfer Assessment Sit to and From Stand Sit to and from Stand Maximum Assistance 2 Person Assistance Transfers Transfer Ability Maximum Assistance 2 Person Assistance Technique Transfer Destination Bed Chair Transfer Technique Stand Step Pivot Devices Transfer Assistive Devices Gait Belt Front Wheeled Walker Comments Mobility Comments Pt needs skilled 2 person assist for transfers given LLE weakness and BLE tone/ spasticity. OT- Gait Assessment Gait Gait Assistance Required: Maximum Assistance 2 Person Assist Assistive Devices Assistive Device Gait Belt Front Wheeled Walker Comments Gait Ability Comments 3 person assist with one person pushign the chair. Pt was able to take only a few steps with 2 person max a and facilitation of the LLE d/t weakness. OT- Balance Assessment Sitting Balance and Reactions Static Sitting Balance Ability Good Dynamic Sitting Balance Ability Poor Standing Balance and Reactions Static Standing Balance Ability Poor Dynamic Standing Balance Ability Poor M8 OT- IP Objective Assessments Start: 12/13/18 14:27 Freq: Status: Active Protocol: Document 12/13/18 12:48 PJM (Rec: 12/13/18 15:01 PJM [id number]) OT Gross Range of Motion Upper Extremity Range of Motion Assessment Within Functional Limits OT Strength Upper Extremity Strength Assessment Within Functional Limits Hand Testing Analyst Strength Hand Dominance Right OT- Coordination Assessment Comments Coordination Comments BUE WFL OT-Muscle Tone Assessment Muscle Tone WNL Yes Comments Muscle Tone Comments BUE muscle tone WFL, pt has strong BLE adductor tone ( worse than baseline per pt) OT Sensation Assessment Comments Summary Comments BUE WNL per pt Edema Edema Comments pt wears BLE knee high compression hose with ankle edema noted M9 OT- IP Assessment and Plan Start: 12/13/18 14:27 Freq: Status: Active Protocol: Document 12/14/18 13:13 CGR (Rec: 12/14/18 13:30 CGR [email or web address]) OT Summary Assessment and Plan Potential Rehabilitation Potential Excellent Analytic Complexity at Evaluation Moderate Summary OT Impairments Range of Motion Strength Balance Tone Functional Mobility Grooming Dressing Toileting Bathing Toilet Transfers Shower Transfers Assessment Summary Pt is progressing with therapy . Focus on mobility in todays session as pt needs heavy 2 person skilled assist for transfers and gait. Pt will benefit from continued intensive therapy to strengthen and improved mobility and therefore her ability to perform ADLs. Pt needs facilitation of the LLE d/t weakness and knee buckling with all mobility. Recommend SNF vs Rehab upon discharge. Goals Grooming Goal Independent Dressing Goal Moderate Assistance Toileting Goal Moderate Assistance Bathing Goal Minimal Assistance Toilet Transfer Goal Moderate Assistance Bedside Commode Patient/Caregiver Education Goal Demonstrate Post-Op Precautions OT-Other Goals Bathing goal is for seated upper body sponge bath. Days to Meet Goals 6 Frequency of Treatment Frequency Of Treatment Once a Day Treatment Plan OT Treatment Plan ADL Training Functional Mobility Patient/Family Education Discharge Planning Discharge Recommendations OT Discharge Recommendations SNF Rehab Home Equipment Needs to be determined pending progress
--- NOTE | 2018-12-14 15:26 | CM.DPNOTE ---
DC Note: Received call from Blank at [facility], alerting us that pt had been approved for SNF. Updated pt and she remains agreeable to a DC to [facility] today. Updated Juanita at [facility], she is prepared to accept pt for admission today. Giulia [facility], faxed the completed PASRR, signed med list/Rx and DC Summary to [facility]. Transportation via SNF w/c van arranged for approx [phone] p/u, updated RN and pt, all agreeable. P: DC to [facility] via w/c van today. Updated Madalyn at [facility] on DC date/dispo per request. GINA Thompson
--- NOTE | 2018-12-19 10:03 | PM.DS.1 ---
History of Present Illness Date Patient Seen: 12/14/18 Time Patient Seen: 12:03 Chief complaint: Right Total Hip Arthroplasty/Anterior Approach Narrative: Please see HPI recorded in chart. Discharge Providers Date of admission: 12/11/18 06:03 Discharge Date: 12/14/18 Primary care physician: TY Owens Consults: 11/27/18 15:28 Consult to Anesthesiology Routine Comment: Consulting Provider: Anesthesiologist Reason for consultation: Surgeon requested re: MS 12/11/18 06:00 Consult to Anesthesiology Routine Comment: Consulting Provider: Anesthesiologist Reason for consultation: Regional block for post operative pain control 12/11/18 14:15 Consult to Discharge Planning Routine Comment: Consult to Physical Therapy Evaluate & Treat Comment: Physician Instructions: post op GARO protocol Consult to Respiratory Therapy Evaluate & Treat Comment: Physician Instructions: Evaluate and treat 12/12/18 09:03 Consult to Occupational Therapy Evaluate & Treat Comment: Physician Instructions: Evaluate and treat Discharge provider: Lamar Wray PA-C Summary Discharge Diagnosis: s/p Right anterior total hip arthroplasty Hospital Course: he patient has had progressively worsening right hip pain with radiographic changes consistent with arthritis. Non-operative management has failed and the patient has requested total hip replacement. The risks, benefits and alternatives to surgery were discussed with the patient prior to proceeding. Risks discussed included, but were not limited to, failure to relieve pain, leg length discrepancy, dislocation, stiffness, infection, nerve damage, deep venous thrombosis, pulmonary embolism, stroke, coma, heart attack, permanent paralysis and , as well as the potential need for eventual revision of the prosthetic. Patient has a history of multiple sclerosis. After obtaining informed consent patient was taken to the operating room where she underwent a right anterior total hip arthroplasty with Dr. Worthy which she tolerated well. She was then taken to the acute care [facility] where she has been slow to mobilize. Throughout her stay she has required maximum assist and Wilton lift for transfers. She has a limited ability to stand for short periods of time and is unable to mobilize to bedside commode. Cárdenas catheter has remained in place due to her poor mobility. After prior surgeries she required in/out straight catheterization for 2 weeks post operatively. Inpatient urinalysis was negative for infection. She has mild postoperative anemia and was started on vitamin-C and iron which she is recommended to continue upon discharge. Pain is well controlled mostly with Tylenol, though she will be discharged with prescription for Oxycodone as well for breakthrough. On POD#3 she is medically stable and ready to be discharged to SNF due to her baseline poor mobility due to history of MS along with need for further post operative rehabilitation. Status at Discharge Cognitive/behavioral status at discharge: oriented Exam Vital Signs (past 8 hours): Oxygen Delivery Method Room Air Oxygen Flow Rate 0 Narrative Exam Narrative: Pleasant 63 year old female, resting in chair, alert and oriented in no acute distress. Dressing in place over right hip is clean, dry, and intact. Patient able to flex/extend the ankle. Palpable pedal pulse. Calves soft, compressible. Objective Labs Result Diagrams: /01/ 05:47 Discharge Plan Discharge Plan Patient Disposition: SNF Transfer to: [facility] Consult as needed: Dental, Hearing, Mental health, Podiatry and Vision I certify the postop hospital nursing home care is medically necessary on a continuing basis for any conditions for which he/ she received care during this hospitalization.: Yes The receiving facility has agreed to accept transfer and provide medical treatment.: Yes Discharge Med Rec/Prescriptions Prescriptions: New aspirin 81 mg Tablet,Delayed Release (Dr/Ec) 81 mg PO BID Qty: 60 RF: 0 ascorbic acid (vitamin C) [Vitamin C] 500 mg Tablet 500 mg PO BID Qty: 60 RF: 0 ferrous sulfate 325 mg (65 mg iron) Tablet 325 mg PO BIDWM Qty: 60 RF: 0 docusate sodium [DOK] 100 mg Capsule 100 mg PO BID Qty: 60 RF: 0 oxycodone 5 mg Tablet 5 mg PO Q4-6H PRN (Reason: Pain, Moderate (4-6)) Qty: 60 RF: 0 hydroxyzine pamoate 25 mg Capsule 25 mg PO Q6HR PRN (Reason: Spasms) Qty: 60 RF: 0 Continued acetaminophen [Tylenol Arthritis Pain] 650 mg Tablet Extended Release 1,300 mg PO BID RF: 0 baclofen 10 mg Tablet 10 mg PO DAILY PRN (Reason: Spasms) RF: 0 doxycycline hyclate 100 mg Tablet 100 mg PO BID RF: 0 cholecalciferol (vitamin D3) [Vitamin D3] 5,000 unit Tablet 5,000 unit PO DAILY RF: 0 Vitamin B-12 5,000 mcg Tablet, Sublingual 5,000 mcg SUBLINGUAL DAILY RF: 0 Follow up/Referrals: Leanna Garcia ARNP [Primary Care Provider] - Mandy Worthy MD [Physician] - Discharge Health Status Brief summary of current health status: Hospital day 3, postop day 2 following right anterior total hip arthroplasty by Dr. Worthy. She does have multiple sclerosis. She continues to require maximum assist and Wilton lift for transfers. Limited ability to stand for short periods of time even for commode. Does have mild postoperative anemia and was started on vitamin-C and iron. She does have Cárdenas catheter in place. She had a urinalysis done yesterday which was negative. Precautions: [place] Provider Discharge Instructions Diet: Diet as Tolerated Liquid consistency: Normal/Thin Food texture: Regular Cold/Heat Therapy: Ice packs as needed Catheter: 2-way Cárdenas Skin/Wound/Dressing Care Dressing: Leave dressing in place. It will be removed at 2 week post op visit. It may be changed if saturated, or you may call the office for dressing change appointment. [facility] Reason for rehabilitation: Post-operative therapy Rehab type: Physical therapy and Occupational therapy Visit Report/Discharge Packet Instructions: DI for Hip Replacement Stand Alone Forms: Surgery Discharge Discharge Data Primary Care Provider: Leanna Garcia Attending Provider: Mandy Worthy Admit Date/Time: 12/11/18 06:03 Discharges patient from system. Discharge Date/Time: 12/14/18 15:26 Quality VTE Deep Vein Thrombosis/Pulmonary Embolism Present on Admission: No
== END 2018-12-14 15:26 | DRG 470 ==
PROVIDERS: Physician Assistant Surgical; Admitting Provider Orthopaedic Surgery; PCP Registered Nurse; Visit Provider Orthopaedic Surgery
PROC: 0SR902Z Replacement of Right Hip Joint with Metal on Polyethylene Synthetic Substitute, Open Approach (ICD-10-PCS; CPT 27130; principal; 2018-12-11 07:45)
DX: M16.51 Unilateral post-traumatic osteoarthritis, right hip (principal); D62 Acute posthemorrhagic anemia; G35 Multiple sclerosis; N18.3 Chronic kidney disease, stage 3 (moderate); N31.9 Neuromuscular dysfunction of bladder, unspecified; N30.20 Other chronic cystitis without hematuria; V89.2XXD Person injured in unspecified motor-vehicle accident, traffic, subsequent encounter
CPT/HCPCS: 36415; 73502; 76000; 81001; 85014; 85018; 85027; 94760; 97116; 97162; 97166; 97530; 97535; C1776; C9290; J0690; J1100; J2405; J3010